=== PATIENT | female | born 1990 | race Caucasian/White ===

== ENCOUNTER 2016-12-16 23:15 | Outpatient (CLI) | payer OTHER ==
[~2016-12-16] VITALS: Ht 160 cm; Wt 60.2 kg
[2016-12-16 23:20] VITALS: BP 126/74; PULSE 82; RESP 20; Ht 160 cm; Wt 60.2 kg
[2016-12-17] MEDS ORDERED: PREN1TAB79 PO (00:07)
[2016-12-17] MEDS ORDERED: ALPRAZOLAM 1 MG TAB PO ONE (01:09)
[2016-12-17 01:39] LABS: ADD UMIC YES; UR ASCORBIC ACID NEGATIVE (NEGATIVE); UR BACTERIA MODERATE /HPF (NONE SEEN); UR BILIRUBIN (Dip) NEGATIVE (NEGATIVE); UR BLOOD (Dip) NEGATIVE (NEGATIVE); UR CLARITY SLIGHTLY CLOUDY (CLEAR); UR COLOR AMBER (YELLOW); UR GLUCOSE (Dip) NEGATIVE (NEGATIVE); UR KETONES (Dip) 2+ mg/dL (NEGATIVE); UR LEUKOCYTE ESTERASE (Dip) 2+ Leu/ul (NEGATIVE); UR MUCUS MANY /HPF (NONE SEEN); UR NITRITE (Dip) NEGATIVE (NEGATIVE); UR RBC 3 /HPF (0-5); UR SPECIFIC GRAVITY (Dip) 1.026 (1.003-1.030); UR SQUAMOUS EPITHELIAL CELL MODERATE /HPF (FEW); UR TOTAL PROTEIN (Dip) 1+ mg/dl (NEGATIVE); UR UROBILINOGEN (Dip) 2+ mg/dL (NEGATIVE)
[2016-12-17 01:54] LABS: BENZODIAZEPINES Positive (NEGATIVE)
[2016-12-17 01:55] LABS: WHITE BLOOD COUNT 8.1 10^3/ul (4.8-10.8)
[2016-12-17 01:55] LABS: BARBITURATES Negative (NEGATIVE); CANNABINOIDS Positive (NEGATIVE); COCAINE Negative (NEGATIVE); OPIATES Positive (NEGATIVE)
[2016-12-17 01:56] LABS: BASOPHILS % 0.2 % (0.0-2.0); EOSINOPHILS % 0.2 % (0.0-7.0); HEMATOCRIT 31.7 % (37.0-47.0); HEMOGLOBIN 10.6 g/dl (12.0-16.0); LYMPHOCYTES # 1.6 10^3/ul (0.8-2.9); LYMPHOCYTES % 19.2 % (15.0-51.0); MEAN CORPUSCULAR HEMOGLOBIN 28.4 pg (29.0-33.0); MEAN CORPUSCULAR HGB CONC 33.4 g/dl (32.0-37.0); MEAN PLATELET VOLUME 9.7 fl (7.4-10.4); MONOCYTE # 0.7 10^3/ul (0.3-0.9); NEUTROPHIL # 5.7 10^3/ul (1.6-7.5); NEUTROPHILS % 71.2 % (39.0-77.0); PLATELET COUNT 145 10^3/UL (140-415); RED BLOOD COUNT 3.73 10^6/ul (4.20-5.40); RED CELL DISTRIBUTION WIDTH 13.2 % (11.5-14.5)
--- NOTE | 2016-12-17 02:56 | RADRPT ---
PROCEDURE: OB ultrasound for biophysical profile CLINICAL INDICATION: labor. . TECHNIQUE: Multiple sonographic images of the pelvis were obtained. Transabdominal view of the gr avid uterus are available for review. The images were reviewed on a PACS workstation. COMPARISON: None FINDINGS: breathing movement = 2/2 tone = 2/2 motion = 2/2 MARGE = 2/2 MARGE = 8.82 cm Single live intrauterine with cardiac activity measuring 130 beats per minute. The f etus is in the cephalic presentation. The placenta is anterior, grade 1/2. IMPRESSION: 1. Single viable intrauterine gestation. 2. Biophysical profile = 8/8. 3. MARGE = 8.8 cm. RPTAT: HCNS Physician [place] Date Time Electronically viewed and signed by Physician Kenya on 12/17/2016 02:56 CS/
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
[2016-12-17 09:27] VITALS: BMI 23.5
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
== END 2016-12-17 09:30 | disposition home or self-care (01) ==
LOC: OBT 23:15 → L-D 23:15 → OBT 12-17 09:30
PROVIDERS: ATTEND Obstetrics & Gynecology Obstetrics
DX: O99.343 Other mental disorders complicating pregnancy, third trimester (principal); Z3A.36 36 weeks gestation of pregnancy; F41.9 Anxiety disorder, unspecified; R56.9 Unspecified convulsions
CPT/HCPCS: 76818; 80307; 81001; 85025; 86850; 86900; 86901; Z7500; Z7610; G0463